=== PATIENT | female | born 1990 | race Caucasian/White ===

== ENCOUNTER 2019-12-01 17:38 | Inpatient (IN) | payer BC ==
[~2019-12-01] VITALS: Ht 175.3 cm; Wt 85.0 kg
[2019-12-01 18:09] LABS: PROTEIN/CREATININE RATIO,URINE < 173 (0-200); TOTAL PROTEIN,URINE RANDOM < 5 mg/dL (0-12)
[2019-12-01 18:13] LABS: ALANINE AMINOTRANSFERASE 63 U/L (12-78); ALBUMIN 2.4 g/dL (3.4-5.0); ANION GAP 7 mmol/L (5-15); CALCIUM 8.4 mg/dL (8.5-10.1); CHLORIDE 113 mmol/L (98-107); CREATININE 0.84 mg/dL (0.55-1.02)
[2019-12-01 18:16] LABS: ALKALINE PHOSPHATASE 180 U/L (45-117); BILIRUBIN,TOTAL 0.4 mg/dL (0.2-1.0); TOTAL PROTEIN 5.8 g/dL (6.4-8.2)
[2019-12-01 18:45] LABS: MEAN CORPUSCULAR HEMOGLOBIN 28.5 pg (27.0-34.8); MEAN CORPUSCULAR HGB CONC 32.8 g/dL (32.4-35.8); MEAN CORPUSCULAR VOLUME 86.8 fL (80-100); MEAN PLATELET VOLUME 12.1 fL (7.4-10.4); PLATELET COUNT 129 x10^3/uL (130-400); RED BLOOD COUNT 4.57 x10^6/uL (3.82-5.3); RED CELL DISTRIBUTION WIDTH 13.9 % (9.6-15.2)
[2019-12-01 18:56] LABS: BASOPHILS # (AUTO) 0.04 x10^3/uL (0-0.1); BASOPHILS % (AUTO) 0 % (0-1); EOSINOPHILS # (AUTO) 0.11 x10^3/uL (0-0.4); EOSINOPHILS % (AUTO) 1 % (1-7); LYMPHOCYTES # (AUTO) 2.39 x10^3/uL (1-3.4); LYMPHOCYTES % (AUTO) 26 % (22-44); MD SCAN; MONOCYTES # (AUTO) 0.74 x10^3/uL (0.2-0.8); MONOCYTES % (AUTO) 8 % (2-9); NEUTROPHILS # (AUTO) 6.06 x10^3/uL (1.8-6.8); NEUTROPHILS % (AUTO) 65 % (42-75)
[2019-12-01] MEDS ORDERED: D5%-LACTATED RINGERS 1,000 ML IV SCH (19:25)
[2019-12-01] MEDS ORDERED: OXYTOCIN 30U/ 0.9% NaCL 500ML 500 ML IV ONE ×4 (19:25→19:31)
[2019-12-01] MEDS ORDERED: LACTATED RINGERS 1,000 ML IV SCH (19:25)
[2019-12-01] MEDS ORDERED: ONDANSETRON 2MG/ML, 2ML IVPush PRN ×2 (19:30→20:00)
[2019-12-01] MEDS ORDERED: METOCLOPRAMIDE 5 MG/ML, 2ML IVPush PRN ×2 (19:30→20:00)
[2019-12-01] MEDS ORDERED: TERBUTALINE 1 MG/ML, 1ML SQ PRN ×3 (19:30)
[2019-12-01] MEDS ORDERED: TERBUTALINE 1 MG/ML, 1ML IVPush PRN ×2 (19:30→20:00)
[2019-12-01] MEDS: D5%-LACTATED RINGERS 1,000 ML IV SCH (19:31)
[2019-12-01] MEDS ORDERED: OXYTOCIN 30U/ 0.9% NaCL 500ML 500 ML IV PRN (19:31)
[2019-12-01] MEDS ORDERED: OXYTOCIN 30U/ 0.9% NaCL 500ML 500 ML ONE (19:35)
[2019-12-01] MEDS ORDERED: FENTANYL PF 100 MCG/2ML IV PRN (20:00)
[2019-12-01] MEDS ORDERED: FENTANYL PF 100 MCG/2ML IVPush PRN (20:00)
[2019-12-01] MEDS: LACTATED RINGERS 1,000 ML IV SCH (20:19)
[2019-12-01] MEDS ORDERED: NEWBORN KIT ONE (21:09)
[2019-12-01] MEDS ORDERED: CALCIUM CARBONATE 500 MG TAB.CHEW PO PRN (22:30)
[2019-12-01] MEDS ORDERED: ALUMINUM/MAG/SIMETHICONE 30 ML UDC PO PRN (22:30)
[2019-12-01] MEDS ORDERED: SODIUM CITRATE/CITRIC ACID 30 ML UDC PO PRN (22:30)
[2019-12-01] MEDS ORDERED: FENTANYL/BUPIV./NS/PF 250 ML EPIDCONT SCH (22:52)
[2019-12-02] MEDS: LACTATED RINGERS 1,000 ML IV SCH ×2 (03:31→04:36)
[2019-12-02] MEDS: D5%-LACTATED RINGERS 1,000 ML IV SCH (03:31)
[2019-12-02 07:02] VITALS: BP 125/77
[2019-12-02] MEDS ORDERED: FENTANYL/BUPIV./NS/PF 250 ML EPIDCONT SCH (07:03)
[2019-12-02] MEDS ORDERED: LACTATED RINGERS 1,000 ML IV SCH (07:03)
[2019-12-02 07:19] LABS: MEAN CORPUSCULAR HEMOGLOBIN 28.1 pg (27.0-34.8); MEAN CORPUSCULAR HGB CONC 32.9 g/dL (32.4-35.8); MEAN CORPUSCULAR VOLUME 85.5 fL (80-100); RED BLOOD COUNT 4.88 x10^6/uL (3.82-5.3); RED CELL DISTRIBUTION WIDTH 13.8 % (9.6-15.2)
[2019-12-02 07:20] LABS: BASOPHILS # (AUTO) 0.03 x10^3/uL (0-0.1); BASOPHILS % (AUTO) 0 % (0-1); EOSINOPHILS # (AUTO) 0.06 x10^3/uL (0-0.4); EOSINOPHILS % (AUTO) 1 % (1-7); LYMPHOCYTES # (AUTO) 2.95 x10^3/uL (1-3.4); LYMPHOCYTES % (AUTO) 24 % (22-44); MD MORPH REVIEW ONLY; MEAN PLATELET VOLUME 11.8 fL (7.4-10.4); MONOCYTES # (AUTO) 0.84 x10^3/uL (0.2-0.8); MONOCYTES % (AUTO) 7 % (2-9); NEUTROPHILS # (AUTO) 8.64 x10^3/uL (1.8-6.8); NEUTROPHILS % (AUTO) 69 % (42-75)
[2019-12-02 07:22] LABS: PLATELET COUNT 170 x10^3/uL (130-400)
[2019-12-02 07:23] LABS: <PLATELET ESTIMATE> ADEQUATE; <RBC MORPHOLOGY> NORMAL; GIANT PLATELETS 1+; LARGE PLATELETS 1+
[2019-12-02] MEDS ORDERED: EPHEDRINE 50 MG/ML, 1ML ONE (07:26)
[2019-12-02] MEDS ORDERED: NALOXONE 0.4 MG/ML, 1ML IVPush PRN (07:30)
[2019-12-02] MEDS ORDERED: LACTATED RINGERS 1,000 ML IVBOLUS PRN (07:30)
[2019-12-02] MEDS: EPHEDRINE 50 MG/ML, 1ML IVPush PRN ×2 (07:38→08:16)
[2019-12-02] MEDS: OXYTOCIN 30U/ 0.9% NaCL 500ML 500 ML IV SCH ×2 (10:17→20:17)
[2019-12-02] MEDS ORDERED: OXYTOCIN 30U/ 0.9% NaCL 500ML 500 ML IV SCH (10:17)
[2019-12-02] MEDS ORDERED: METOCLOPRAMIDE 5 MG/ML, 2ML IV PRN (10:30)
[2019-12-02] MEDS ORDERED: ACETAMINOPHEN 325 MG TABLET PO PRN ×2 (10:30)
[2019-12-02] MEDS ORDERED: MISOPROSTOL 200 MCG TABLET PR PRN (10:30)
[2019-12-02] MEDS ORDERED: SIMETHICONE 80 MG CHEW TAB PO PRN ×2 (10:30)
[2019-12-02] MEDS ORDERED: ONDANSETRON 2MG/ML, 2ML IV PRN (10:30)
[2019-12-02] MEDS ORDERED: OXYcodone/APAP 5/325MG TABLET PO PRN ×2 (10:30)
[2019-12-02] MEDS ORDERED: DOCUSATE 100 MG CAPSULE PO PRN (10:30)
[2019-12-02] MEDS ORDERED: OXYTOCIN 30U/ 0.9% NaCL 500ML 500 ML ONE ×2 (11:09→12:13)
[2019-12-02] MEDS ORDERED: IBUPROFEN 600 MG TABLET ONE (12:13)
[2019-12-02 12:40] VITALS: BP 135/85
[2019-12-02] MEDS: IBUPROFEN 600 MG TABLET PO PRN ×2 (12:50→17:58)
[2019-12-02 16:35] VITALS: BP 156/95
[2019-12-02 18:40] LABS: BASOPHILS # (AUTO) 0.04 x10^3/uL (0-0.1); BASOPHILS % (AUTO) 0 % (0-1); EOSINOPHILS # (AUTO) 0.04 x10^3/uL (0-0.4); EOSINOPHILS % (AUTO) 0 % (1-7); LYMPHOCYTES # (AUTO) 2.23 x10^3/uL (1-3.4); LYMPHOCYTES % (AUTO) 17 % (22-44); MD SCAN; MEAN CORPUSCULAR HEMOGLOBIN 28.3 pg (27.0-34.8); MEAN CORPUSCULAR HGB CONC 32.7 g/dL (32.4-35.8); MEAN CORPUSCULAR VOLUME 86.5 fL (80-100); MONOCYTES # (AUTO) 1.09 x10^3/uL (0.2-0.8); MONOCYTES % (AUTO) 8 % (2-9); NEUTROPHILS # (AUTO) 9.82 x10^3/uL (1.8-6.8); NEUTROPHILS % (AUTO) 74 % (42-75); PLATELET COUNT 133 x10^3/uL (130-400); RED CELL DISTRIBUTION WIDTH 14.1 % (9.6-15.2)
[2019-12-02 19:45] VITALS: BP 151/91
[2019-12-03] VITALS (8 sets, daily range): BP systolic 134–153; BP diastolic 79–95
[2019-12-03] MEDS: IBUPROFEN 600 MG TABLET PO PRN ×4 (00:46→20:28)
[2019-12-03] MEDS: OXYTOCIN 30U/ 0.9% NaCL 500ML 500 ML IV SCH ×2 (06:17→16:17)
[2019-12-03] MEDS: PRENATAL VIT/IRON/FA 1 EACH TABLET PO SCH (07:37)
[2019-12-03] MEDS: DOCUSATE 100 MG CAPSULE PO PRN ×2 (07:37→20:28)
[2019-12-03] MEDS ORDERED: PRENATAL VIT/IRON/FA 1 EACH TABLET PO SCH (09:00)
[2019-12-03 10:28] LABS: ALBUMIN 2.3 g/dL (3.4-5.0); ANION GAP 4 mmol/L (5-15); CHLORIDE 113 mmol/L (98-107)
[2019-12-03 10:31] LABS: ALANINE AMINOTRANSFERASE 71 U/L (12-78); ALKALINE PHOSPHATASE 174 U/L (45-117); BILIRUBIN,TOTAL 0.9 mg/dL (0.2-1.0); CREATININE 0.78 mg/dL (0.55-1.02); TOTAL PROTEIN 5.7 g/dL (6.4-8.2)
[2019-12-03 10:33] LABS: BASOPHILS # (AUTO) 0.03 x10^3/uL (0-0.1); BASOPHILS % (AUTO) 0 % (0-1); EOSINOPHILS # (AUTO) 0.17 x10^3/uL (0-0.4); EOSINOPHILS % (AUTO) 2 % (1-7); LYMPHOCYTES # (AUTO) 1.88 x10^3/uL (1-3.4); LYMPHOCYTES % (AUTO) 21 % (22-44); MD SCAN; MEAN CORPUSCULAR HEMOGLOBIN 28.5 pg (27.0-34.8); MEAN CORPUSCULAR HGB CONC 33.2 g/dL (32.4-35.8); MEAN CORPUSCULAR VOLUME 85.9 fL (80-100); MEAN PLATELET VOLUME 11.3 fL (7.4-10.4); MONOCYTES # (AUTO) 0.53 x10^3/uL (0.2-0.8); MONOCYTES % (AUTO) 6 % (2-9); NEUTROPHILS # (AUTO) 6.33 x10^3/uL (1.8-6.8); NEUTROPHILS % (AUTO) 71 % (42-75); PLATELET COUNT 128 x10^3/uL (130-400); RED BLOOD COUNT 4.27 x10^6/uL (3.82-5.3); RED CELL DISTRIBUTION WIDTH 14.2 % (9.6-15.2)
[2019-12-04] MEDS: OXYTOCIN 30U/ 0.9% NaCL 500ML 500 ML IV SCH (02:17)
[2019-12-04 02:30] VITALS: BP 156/99
[2019-12-04] MEDS: IBUPROFEN 600 MG TABLET PO PRN ×2 (03:59→10:14)
[2019-12-04 04:03] VITALS: BP 118/74
[2019-12-04 07:05] LABS: ALANINE AMINOTRANSFERASE 84 U/L (12-78); ALBUMIN 2.4 g/dL (3.4-5.0); ANION GAP 6 mmol/L (5-15); CALCIUM 8.2 mg/dL (8.5-10.1); CHLORIDE 108 mmol/L (98-107); CREATININE 0.75 mg/dL (0.55-1.02)
[2019-12-04 07:08] LABS: ALKALINE PHOSPHATASE 174 U/L (45-117); BILIRUBIN,TOTAL 0.5 mg/dL (0.2-1.0)
[2019-12-04 07:16] LABS: BASOPHILS # (AUTO) 0.03 x10^3/uL (0-0.1); BASOPHILS % (AUTO) 0 % (0-1); EOSINOPHILS # (AUTO) 0.15 x10^3/uL (0-0.4); EOSINOPHILS % (AUTO) 2 % (1-7); LYMPHOCYTES # (AUTO) 2.21 x10^3/uL (1-3.4); LYMPHOCYTES % (AUTO) 27 % (22-44); MD SCAN; MEAN CORPUSCULAR HEMOGLOBIN 28.4 pg (27.0-34.8); MEAN CORPUSCULAR HGB CONC 32.5 g/dL (32.4-35.8); MEAN CORPUSCULAR VOLUME 87.4 fL (80-100); MEAN PLATELET VOLUME 11.1 fL (7.4-10.4); MONOCYTES # (AUTO) 0.55 x10^3/uL (0.2-0.8); MONOCYTES % (AUTO) 7 % (2-9); NEUTROPHILS # (AUTO) 5.41 x10^3/uL (1.8-6.8); NEUTROPHILS % (AUTO) 65 % (42-75); PLATELET COUNT 157 x10^3/uL (130-400); RED BLOOD COUNT 4.47 x10^6/uL (3.82-5.3); RED CELL DISTRIBUTION WIDTH 14.4 % (9.6-15.2)
[2019-12-04 07:50] VITALS: BP 145/92
[2019-12-04] MEDS: PRENATAL VIT/IRON/FA 1 EACH TABLET PO SCH (08:34)
[2019-12-04] MEDS: DOCUSATE 100 MG CAPSULE PO PRN (08:34)
[2019-12-04] MEDS ORDERED: IBUP-1222 PO (09:31)
[2019-12-04] MEDS ORDERED: NIFE10CA PO (09:32)
== END 2019-12-04 11:09 | disposition home or self-care (01) | DRG 806 ==
LOC: LDOP 17:38 → LDIP 19:20 → UNDOADMIN 19:20 → LDIP 19:37 → 2NW 12-02 10:08
PROVIDERS: ADMIT Obstetrics & Gynecology; ATTEND Obstetrics & Gynecology
PROC: 10E0XZZ Delivery of Products of Conception, External Approach (ICD-10-PCS; principal; 2019-12-02)
PROC: 0KQM0ZZ Repair Perineum Muscle, Open Approach (ICD-10-PCS; 2019-12-02)
PROC: 3E0R3BZ Introduction of Anesthetic Agent into Spinal Canal, Percutaneous Approach (ICD-10-PCS; 2019-12-02)
PROC: 00HU33Z Insertion of Infusion Device into Spinal Canal, Percutaneous Approach (ICD-10-PCS; 2019-12-02)
PROC: 10907ZC Drainage of Amniotic Fluid, Therapeutic from Products of Conception, Via Natural or Artificial Opening (ICD-10-PCS; 2019-12-02)
PROC: 3E033VJ Introduction of Other Hormone into Peripheral Vein, Percutaneous Approach (ICD-10-PCS; 2019-12-02)
DX: O13.4 Gestational [pregnancy-induced] hypertension without significant proteinuria, complicating childbirth (principal); O99.12 Other diseases of the blood and blood-forming organs and certain disorders involving the immune mechanism complicating childbirth; Z37.0 Single live birth; O99.52 Diseases of the respiratory system complicating childbirth; J45.909 Unspecified asthma, uncomplicated; Z3A.37 37 weeks gestation of pregnancy; O70.1 Second degree perineal laceration during delivery; D69.6 Thrombocytopenia, unspecified
CPT/HCPCS: 36415; 80053; 82570; 84156; 84550; 85025; 86592; 86850; 86900; G0378; J2590; J3010; J7120

== ENCOUNTER 2021-06-05 09:52 | Inpatient (IN) | payer BC ==
[~2021-06-05] VITALS: Ht 175.3 cm; Wt 78.0 kg
[~2021-06-05 09:52] MED LIST: IBUP-1222 PO; NIFE10CA PO
[2021-06-05 10:44] LABS: MICROSCOPIC INDICATED
[2021-06-05 10:52] LABS: BASOPHILS % (AUTO) 0 % (0-1); EOSINOPHILS % (AUTO) 1 % (1-7); LYMPHOCYTES % (AUTO) 21 % (22-44); MEAN CORPUSCULAR HEMOGLOBIN 28.2 pg (27.0-34.8); MEAN CORPUSCULAR HGB CONC 33.4 g/dL (32.4-35.8); MEAN PLATELET VOLUME 10.6 fL (7.4-10.4); MONOCYTES % (AUTO) 6 % (2-9); NEUTROPHILS % (AUTO) 73 % (42-75); PLATELET COUNT 122 x10^3/uL (130-400); RED BLOOD COUNT 5.05 x10^6/uL (3.82-5.3); RED CELL DISTRIBUTION WIDTH 13.3 % (9.6-15.2)
[2021-06-05 10:56] LABS: ALANINE AMINOTRANSFERASE 166 U/L (12-78); ALBUMIN 2.4 g/dL (3.4-5.0); ANION GAP 8 mmol/L (5-15); BILIRUBIN, DIRECT 0.2 mg/dL (0.1-0.2); CALCIUM 8.7 mg/dL (8.5-10.1); CHLORIDE 107 mmol/L (98-107); CREATININE 0.66 mg/dL (0.55-1.02)
[2021-06-05 10:58] LABS: PROTEIN/CREATININE RATIO,URINE < 100 (0-200); TOTAL PROTEIN,URINE RANDOM < 5 mg/dL (0-12)
[2021-06-05 10:59] LABS: ALKALINE PHOSPHATASE 173 U/L (45-117); BILIRUBIN,TOTAL 0.6 mg/dL (0.2-1.0); TOTAL PROTEIN 6.5 g/dL (6.4-8.2)
[2021-06-05] MEDS ORDERED: TERBUTALINE 1 MG/ML, 1ML SQ PRN (12:00)
[2021-06-05] MEDS ORDERED: FENTANYL PF 100 MCG/2ML IV PRN (12:00)
[2021-06-05] MEDS ORDERED: OXYTOCIN 30U/ 0.9% NaCL 500ML 500 ML IV ONE (12:00)
[2021-06-05] MEDS ORDERED: FENTANYL PF 100 MCG/2ML IVPush PRN (12:00)
[2021-06-05] MEDS ORDERED: ONDANSETRON 2MG/ML, 2ML IVPush PRN (12:00)
[2021-06-05] MEDS ORDERED: TERBUTALINE 1 MG/ML, 1ML IVPush PRN (12:00)
[2021-06-05] MEDS ORDERED: NEWBORN KIT ONE (12:16)
[2021-06-05] MEDS ORDERED: MISOPROSTOL 200 MCG TABLET ONE (12:16)
[2021-06-05] MEDS ORDERED: LIDOCAINE 1%, 20ML ONE (12:16)
[2021-06-05] MEDS ORDERED: MISOPROSTOL 25 MCG TABLET ONE (12:16)
[2021-06-05] MEDS ORDERED: MAGNESIUM SULF. PMX 20GM/500ML 500 ML IV ONE (13:31)
[2021-06-05] MEDS: MAGNESIUM SULF. PMX 20GM/500ML 500 ML IV SCH ×2 (13:41→21:51)
[2021-06-05] MEDS ORDERED: MAGNESIUM SULFATE PMX 4GM/100M 100 ML IVPB ONE (14:00)
[2021-06-05 16:28] LABS: ALBUMIN 2.5 g/dL (3.4-5.0); ANION GAP 8 mmol/L (5-15); CALCIUM 8.9 mg/dL (8.5-10.1); CHLORIDE 104 mmol/L (98-107)
[2021-06-05 16:31] LABS: ALANINE AMINOTRANSFERASE 169 U/L (12-78); ALKALINE PHOSPHATASE 182 U/L (45-117); BASOPHILS % (AUTO) 1 % (0-1); BILIRUBIN,TOTAL 0.6 mg/dL (0.2-1.0); CREATININE 0.65 mg/dL (0.55-1.02); EOSINOPHILS % (AUTO) 1 % (1-7); LYMPHOCYTES % (AUTO) 22 % (22-44); MEAN CORPUSCULAR HEMOGLOBIN 27.6 pg (27.0-34.8); MEAN CORPUSCULAR HGB CONC 32.7 g/dL (32.4-35.8); MEAN PLATELET VOLUME 11.1 fL (7.4-10.4); MONOCYTES % (AUTO) 6 % (2-9); NEUTROPHILS % (AUTO) 71 % (42-75); PLATELET COUNT 151 x10^3/uL (130-400); RED BLOOD COUNT 5.19 x10^6/uL (3.82-5.3); RED CELL DISTRIBUTION WIDTH 13.3 % (9.6-15.2); TOTAL PROTEIN 6.8 g/dL (6.4-8.2)
[2021-06-05] MEDS ORDERED: D5%-LACTATED RINGERS 1,000 ML IV SCH (19:00)
[2021-06-05] MEDS ORDERED: BUPIVACAINE 0.25% ONE (20:07)
[2021-06-05] MEDS ORDERED: FENTANYL/BUPIV./NS/PF 250 ML EPIDCONT ONE (20:07)
[2021-06-05] MEDS ORDERED: LIDOCAINE/PF 1.5% EPI 1:200K, 10 ML ONE (20:15)
[2021-06-05] MEDS ORDERED: ACETAMINOPHEN 500 MG TABLET ONE (21:44)
[2021-06-05] MEDS ORDERED: ACETAMINOPHEN 500 MG TABLET PO ONE (22:00)
[2021-06-05] MEDS ORDERED: EPHEDRINE 50 MG/ML, 1ML ONE (22:51)
[2021-06-06] VITALS (7 sets, daily range): BP systolic 107–125; BP diastolic 61–76
[2021-06-06] MEDS: LACTATED RINGERS 1,000 ML IV SCH (00:25)
[2021-06-06] MEDS: OXYTOCIN 30U/ 0.9% NaCL 500ML 500 ML IV SCH (00:25)
[2021-06-06] MEDS ORDERED: MISOPROSTOL 200 MCG TABLET PR PRN (01:00)
[2021-06-06] MEDS ORDERED: OXYcodone/APAP 5/325MG TABLET PO PRN ×2 (01:00)
[2021-06-06] MEDS ORDERED: DIPH,PERTUSS(ACELL),TET VAC/PF NC IM-VACC PRN (01:00)
[2021-06-06] MEDS ORDERED: MAGNESIUM HYDROXIDE 8%, 30ML UDC PO PRN (01:00)
[2021-06-06] MEDS ORDERED: SIMETHICONE 80 MG CHEW TAB PO PRN (01:00)
[2021-06-06] MEDS ORDERED: ONDANSETRON 2MG/ML, 2ML IV PRN (01:00)
[2021-06-06] MEDS ORDERED: RHOGAM FROM BLOOD BANK 1 NOTE EA IM/IV ONE (01:00)
[2021-06-06] MEDS ORDERED: ACETAMINOPHEN 325 MG TABLET PO PRN (01:00)
[2021-06-06] MEDS: IBUPROFEN 600 MG TABLET PO PRN ×2 (02:00→20:48)
[2021-06-06 04:21] LABS: BASOPHILS % (AUTO) 0 % (0-1); EOSINOPHILS % (AUTO) 0 % (1-7); LYMPHOCYTES % (AUTO) 16 % (22-44); MEAN CORPUSCULAR HEMOGLOBIN 28.1 pg (27.0-34.8); MEAN CORPUSCULAR HGB CONC 33.2 g/dL (32.4-35.8); MEAN PLATELET VOLUME 10.8 fL (7.4-10.4); MONOCYTES % (AUTO) 7 % (2-9); NEUTROPHILS % (AUTO) 77 % (42-75); PLATELET COUNT 118 x10^3/uL (130-400); RED BLOOD COUNT 4.08 x10^6/uL (3.82-5.3); RED CELL DISTRIBUTION WIDTH 13.3 % (9.6-15.2)
[2021-06-06 04:32] LABS: ALANINE AMINOTRANSFERASE 126 U/L (12-78); ALBUMIN 1.8 g/dL (3.4-5.0); ANION GAP 5 mmol/L (5-15); CHLORIDE 104 mmol/L (98-107); CREATININE 0.64 mg/dL (0.55-1.02)
[2021-06-06 04:34] LABS: ALKALINE PHOSPHATASE 132 U/L (45-117); BILIRUBIN,TOTAL 0.5 mg/dL (0.2-1.0)
[2021-06-06] MEDS: MAGNESIUM SULF. PMX 20GM/500ML 500 ML IV SCH (07:15)
[2021-06-06] MEDS ORDERED: TRANEXAMIC ACID 100 MG/ML, 10ML ONE (08:40)
[2021-06-06] MEDS ORDERED: METHYLERGONOVINE 0.2 MG/ML IM ONE (08:51)
[2021-06-06] MEDS ORDERED: TRANEXAMIC ACID 1,000 MG in SODIUM CHLORIDE 0.9% 100 ML IVPB ONE (09:00)
[2021-06-06] MEDS ORDERED: MIDAZOLAM 1 MG/ML, 5ML ONE (09:36)
[2021-06-06] MEDS ORDERED: SODIUM CHLORIDE FLUSH 0.9%, 20 ML ONE ×2 (10:05→10:19)
[2021-06-06] MEDS ORDERED: CEFAZOLIN 1,000 MG ONE (10:05)
[2021-06-06] MEDS ORDERED: EPHEDRINE 50 MG/ML, 1ML ONE (10:19)
[2021-06-06] MEDS ORDERED: DEXAMETHASONE 4 MG/ML, 1ML ONE (10:50)
[2021-06-06] MEDS ORDERED: ONDANSETRON 2MG/ML, 2ML ONE (10:50)
[2021-06-06 11:48] LABS: BASOPHILS % (AUTO) 0 % (0-1); EOSINOPHILS % (AUTO) 0 % (1-7); LYMPHOCYTES % (AUTO) 10 % (22-44); MEAN CORPUSCULAR HEMOGLOBIN 29.7 pg (27.0-34.8); MEAN CORPUSCULAR HGB CONC 33.7 g/dL (32.4-35.8); MEAN PLATELET VOLUME 10.5 fL (7.4-10.4); MONOCYTES % (AUTO) 6 % (2-9); NEUTROPHILS % (AUTO) 83 % (42-75); PLATELET COUNT 82 x10^3/uL (130-400); RED BLOOD COUNT 2.13 x10^6/uL (3.82-5.3); RED CELL DISTRIBUTION WIDTH 13.8 % (9.6-15.2)
[2021-06-06 12:06] LABS: D-DIMER (DIC) 0.57 ug/mlFEU (0.00-0.52); PROTIME 12.5 Seconds (9.6-11.5)
[2021-06-06] MEDS ORDERED: METHYLERGONOVINE 0.2 MG/ML IM PRN (14:00)
[2021-06-06 18:26] LABS: MEAN CORPUSCULAR HEMOGLOBIN 29.2 pg (27.0-34.8); MEAN CORPUSCULAR HGB CONC 33.6 g/dL (32.4-35.8); MEAN PLATELET VOLUME 10.9 fL (7.4-10.4); PLATELET COUNT 118 x10^3/uL (130-400); RED BLOOD COUNT 3.46 x10^6/uL (3.82-5.3); RED CELL DISTRIBUTION WIDTH 14.2 % (9.6-15.2)
[2021-06-06 18:39] LABS: ALANINE AMINOTRANSFERASE 73 U/L (12-78); ALBUMIN 1.8 g/dL (3.4-5.0); ANION GAP 8 mmol/L (5-15); CALCIUM 6.5 mg/dL (8.5-10.1); CHLORIDE 105 mmol/L (98-107)
[2021-06-06 18:41] LABS: ALKALINE PHOSPHATASE 97 U/L (45-117); BILIRUBIN,TOTAL 1.6 mg/dL (0.2-1.0); CREATININE 0.49 mg/dL (0.55-1.02); TOTAL PROTEIN 4.5 g/dL (6.4-8.2)
[2021-06-06 21:05] LABS: BAND#(MANUAL) 1.78 x10^3/uL; BANDS%(MANUAL) 9 % (0-7); EOS% (MANUAL) 1 % (1-7); LYMPH#(MANUAL) 2.18 x10^3/uL (1-3.4); LYMPHS% (MANUAL) 11 % (22-44); MONOS#(MANUAL) 1.39 x10^3/uL (0.3-2.7); MONOS% (MANUAL) 7 % (2-9); MYELOCYTES% (MANUAL) 1 % (0-0); SEG#(MANUAL) 14.06 x10^3/uL (1.8-6.8); SEGS% (MANUAL) 71 % (42-75)
[2021-06-06 21:06] LABS: <PLATELET ESTIMATE> DECREASED; <PLT MORPHOLOGY> NORMAL PLT MORPH; <RBC MORPHOLOGY> NORMAL
[2021-06-07 00:10] VITALS: BP 114/70
[2021-06-07] MEDS: PRENATAL VIT/IRON/FA 1 EACH TABLET PO SCH ×2 (02:06→09:40)
[2021-06-07] MEDS: IBUPROFEN 600 MG TABLET PO PRN ×4 (02:37→23:18)
[2021-06-07] MEDS: LACTATED RINGERS 1,000 ML IV SCH ×5 (03:00→22:34)
[2021-06-07 05:15] VITALS: BP 104/62
[2021-06-07 06:28] LABS: BASOPHILS % (AUTO) 0 % (0-1); EOSINOPHILS % (AUTO) 0 % (1-7); LYMPHOCYTES % (AUTO) 22 % (22-44); MEAN CORPUSCULAR HEMOGLOBIN 29.7 pg (27.0-34.8); MEAN CORPUSCULAR HGB CONC 34.3 g/dL (32.4-35.8); MEAN PLATELET VOLUME 10.3 fL (7.4-10.4); MONOCYTES % (AUTO) 8 % (2-9); NEUTROPHILS % (AUTO) 70 % (42-75); PLATELET COUNT 110 x10^3/uL (130-400); RED BLOOD COUNT 2.62 x10^6/uL (3.82-5.3); RED CELL DISTRIBUTION WIDTH 14.6 % (9.6-15.2)
[2021-06-07 06:42] LABS: ALBUMIN 1.5 g/dL (3.4-5.0); ANION GAP 4 mmol/L (5-15); CALCIUM 7.4 mg/dL (8.5-10.1); CHLORIDE 111 mmol/L (98-107)
[2021-06-07 06:48] LABS: ALANINE AMINOTRANSFERASE 51 U/L (12-78); ALKALINE PHOSPHATASE 74 U/L (45-117); BILIRUBIN,TOTAL 0.4 mg/dL (0.2-1.0); CREATININE 0.49 mg/dL (0.55-1.02)
[2021-06-07] MEDS: OXYTOCIN 30U/ 0.9% NaCL 500ML 500 ML IV SCH ×3 (07:00→22:34)
[2021-06-07 07:56] VITALS: BP 113/62
[2021-06-07] MEDS: DOCUSATE 100 MG CAPSULE PO PRN ×2 (09:40→19:06)
[2021-06-07] MEDS: FERROUS GLUCONATE 324 MG TABLET PO SCH ×2 (09:41→17:12)
[2021-06-07 12:50] VITALS: BP 131/76
[2021-06-07 18:00] VITALS: BP 129/69
[2021-06-07 19:40] VITALS: BP 118/77
[2021-06-08 00:30] VITALS: BP 113/68
[2021-06-08 04:27] VITALS: BP 130/86
[2021-06-08] MEDS: IBUPROFEN 600 MG TABLET PO PRN (05:18)
[2021-06-08 07:25] VITALS: BP 138/86
[2021-06-08] MEDS: PRENATAL VIT/IRON/FA 1 EACH TABLET PO SCH (09:02)
[2021-06-08] MEDS: FERROUS GLUCONATE 324 MG TABLET PO SCH (09:02)
[2021-06-08] MEDS: DOCUSATE 100 MG CAPSULE PO PRN (09:03)
[2021-06-08 10:06] LABS: BASOPHILS % (AUTO) 1 % (0-1); EOSINOPHILS % (AUTO) 2 % (1-7); LYMPHOCYTES % (AUTO) 27 % (22-44); MEAN CORPUSCULAR HEMOGLOBIN 29.9 pg (27.0-34.8); MEAN CORPUSCULAR HGB CONC 34.1 g/dL (32.4-35.8); MEAN PLATELET VOLUME 9.4 fL (7.4-10.4); MONOCYTES % (AUTO) 6 % (2-9); NEUTROPHILS % (AUTO) 65 % (42-75); PLATELET COUNT 163 x10^3/uL (130-400); RED BLOOD COUNT 2.72 x10^6/uL (3.82-5.3); RED CELL DISTRIBUTION WIDTH 14.8 % (9.6-15.2)
[2021-06-08 12:47] VITALS: BP 128/81
[2021-06-08] MEDS: OXYTOCIN 30U/ 0.9% NaCL 500ML 500 ML IV SCH (13:00)
[2021-06-08] MEDS ORDERED: DOCU-131 PO (13:30)
[2021-06-08] MEDS ORDERED: FERR325T23 PO (13:31)
== END 2021-06-08 16:15 | disposition home or self-care (01) | DRG 768 ==
LOC: LDOP 09:52 → LDIP 12:29 → 2NE 06-06 02:18 → 2NW 06-06 23:34
PROVIDERS: ADMIT Obstetrics & Gynecology; ATTEND Obstetrics & Gynecology
PROC: 10E0XZZ Delivery of Products of Conception, External Approach (ICD-10-PCS; principal; 2021-06-06)
PROC: 0W3R7ZZ Control Bleeding in Genitourinary Tract, Via Natural or Artificial Opening (ICD-10-PCS; 2021-06-06)
PROC: 0UQC7ZZ Repair Cervix, Via Natural or Artificial Opening (ICD-10-PCS; 2021-06-06)
PROC: 0KQM0ZZ Repair Perineum Muscle, Open Approach (ICD-10-PCS; 2021-06-06)
PROC: 3E0R3BZ Introduction of Anesthetic Agent into Spinal Canal, Percutaneous Approach (ICD-10-PCS; 2021-06-06)
PROC: 00HU33Z Insertion of Infusion Device into Spinal Canal, Percutaneous Approach (ICD-10-PCS; 2021-06-06)
PROC: 10907ZC Drainage of Amniotic Fluid, Therapeutic from Products of Conception, Via Natural or Artificial Opening (ICD-10-PCS; 2021-06-06)
PROC: 30233K1 Transfusion of Nonautologous Frozen Plasma into Peripheral Vein, Percutaneous Approach (ICD-10-PCS; 2021-06-06)
PROC: 30233N1 Transfusion of Nonautologous Red Blood Cells into Peripheral Vein, Percutaneous Approach (ICD-10-PCS; 2021-06-06)
DX: O62.3 Precipitate labor (principal); Z37.0 Single live birth; O72.2 Delayed and secondary postpartum hemorrhage; D62 Acute posthemorrhagic anemia; O14.24 HELLP syndrome, complicating childbirth; O99.52 Diseases of the respiratory system complicating childbirth; R62.7 Adult failure to thrive; O90.81 Anemia of the puerperium; J45.909 Unspecified asthma, uncomplicated; Z3A.37 37 weeks gestation of pregnancy; Z79.82 Long term (current) use of aspirin; O70.1 Second degree perineal laceration during delivery
CPT/HCPCS: 36415; 80053; 81001; 82248; 82570; 84156; 84550; 85025; 85049; 85379; 85384; 85610; 85730; 86592; 86850; 86900; 86923; G0378; J0690; J1100; J2250; J2405; J2590; J3010; J3475; P9016; P9017